=== PATIENT | male | born 1955 | race Caucasian/White ===

== ENCOUNTER 2023-03-18 10:17 | Outpatient (AMB) | payer MEDICARE, SELFPAY ==
--- NOTE | 2023-03-18 11:07 | MHC.OFFWIV ---
Intake Vital Signs 03/18/23 11:13 Height 5 ft 6 in Weight 235 lb BMI 37.9 BP 150/80 H Blood Pressure Location Rt brachial Position Sitting Pulse 69 Pulse Source Pulse Oximeter Temp 97.8 F Temp Source Oral Pulse Oximetry (%) 97 Oxygen Delivery Method Room Air Intake Visit Reasons: [employer]/right eye irritation(lobby) Intake Note: pt is here for c.o right eye watery, denies vision changes, just feels like hes about to cry eye fills will water and irritates his eye and around his eye Patient Tobacco Use Status: Never used Tobacco Allergies No Known Allergies Allergy (Verified 03/18/23 11:28) Medication List - Last Reconciled 03/18/23 by Jose Bianchi MD No Known Home Meds Do you need a note to return to daycare/school/sports/work: Yes HPI [employer]/right eye irritation(lobby) HPI Details 67-year-old male presents to the office for a sick visit. Patient is developing redness in the right eye for the past few days. Watery discharge. History of allergies in the past. [facility] Patient Tobacco Use Status: Never used Tobacco Physical Exam Vital Signs: Last Vital Signs Temp 97.8 F 03/18/23 11:13 Pulse 69 03/18/23 11:13 BP 150/80 H 03/18/23 11:13 Pulse Ox 97 03/18/23 11:13 Oxygen Delivery Method Room Air 03/18/23 11:13 BMI result Body Mass Index 37.9 Eyes Other: Right eye: Periorbital puffiness. Conjunctiva is clear. Corneas clear. Anterior chambers clear. Assessment & Plan Assessment & Plan (1) Allergic conjunctivitis: Code(s): H10.10 - Acute atopic conjunctivitis, unspecified eye Plan: Prednisone and Zaditor prescribed. If symptoms do not improve to follow-up here. Coding Level of Care Code Est Pt Level 3 (97800) Diagnoses Allergic conjunctivitis H10.10
[2023-03-18 11:13] VITALS: BP 150/80; PULSE 69; TEMP 36.6; O2SAT 97; BMI 37.9
== END 2023-03-18 11:37 | disposition home or self-care (01) ==
PROVIDERS: Visit Provider Internal Medicine
DX: H10.10 Acute atopic conjunctivitis, unspecified eye (principal)
CPT/HCPCS: 99213